=== PATIENT | male | born 1995 | race Caucasian/White ===

== ENCOUNTER 2022-02-21 09:22 | Emergency (ER) | payer OTHER ==
[2022-02-21 09:28] VITALS: BP 135/70; PULSE 84; RESP 18; TEMP 98.4; BMI 25.1
== END 2022-02-21 10:40 | disposition home or self-care (01) ==
LOC: JERFT 09:22
DX: R07.89 Other chest pain (principal)
CPT/HCPCS: 71046-TC-FY; 93005; 93010; 99284-25